=== PATIENT | female | born 1935 | race Caucasian/White ===

== ENCOUNTER → 2018-03-11 | Outpatient (CLI) | payer MEDICARE, BC ==
[2018-03-11 19:15] LABS: Vitamin D 25 Hydroxy 33.5 ng/mL (30.0-100.0)
== END ==
LOC: LABWHC1 11:56
PROVIDERS: ATTEND Psychiatry & Neurology Neurology
DX: F41.9 Anxiety disorder, unspecified (principal); R41.3 Other amnesia; R53.83 Other fatigue
CPT/HCPCS: 36415; 82306; 82607; 82747

== ENCOUNTER → 2018-03-11 | Outpatient (CLI) | payer MEDICARE, BC ==
--- NOTE | 2018-03-11 13:54 | FL ---
COMPARISON: NONE DATE OF EXAM: 03/11/2018 HISTORY: Dysphasia A number of thin and thick substances were ingested under the care of the department of speech pathol ogy. There is no evidence of aspiration or penetration. There is no evidence of obstruction. 1 min sunil and 11 seconds of fluoroscopy provided. No images IMPRESSION: 1. No evidence of aspiration or penetration.
== END | disposition home or self-care (01) ==
LOC: RADFLMAIN 10:52
PROVIDERS: ATTEND Otolaryngology
DX: R13.10 Dysphagia, unspecified (principal); R49.0 Dysphonia
CPT/HCPCS: 74230

== ENCOUNTER → 2018-03-13 | Outpatient (CLI) | payer MEDICARE, BC ==
--- NOTE | 2018-03-13 10:21 | FL ---
ESOPHOGRAM. HISTORY: Dysphagia Esophagram was performed per the air contrast technique. The patient swallowed barium and effervesce nt crystals without difficulty or delay. Esophageal peristalsis and motility appear to be within normal limits. There is no evidence for filling defect, mass or diverticulum. No hiatal hernia seen. Subsequently single contrast cervical esophagram was performed which fails demonstrate evidence for a spiration penetration or mass. Mild prominence of the cricopharyngeus musculature. IMPRESSION: 1.Mild prominence of the cricopharyngeus musculature.
== END | disposition home or self-care (01) ==
LOC: RADFLWHC 09:31
PROVIDERS: ATTEND Otolaryngology
DX: J39.2 Other diseases of pharynx (principal)
CPT/HCPCS: 74220

== ENCOUNTER → 2018-03-20 | Outpatient (CLI) | payer MEDICARE, BC ==
--- NOTE | 2018-03-20 16:59 | MR ---
MR brain without contrast HISTORY: Cerebral vascular disease, memory loss Multiplanar multisequence imaging through the brain. No comparisons. There is no restricted diffusion. Corpus callosum, cervical medullary junction, cerebellopontine angl es are unremarkable. Cortical atrophy is likely age-related. Scattered hyperintensities are present w ithin the deep white matter, periventricular and subcortical white matter on inversion recovery T2-we ighted sequences, the largest in the right frontal lobe measures proximally 9 mm on axial image 16. T here are approximately 50 lesions present. There are normal vascular flow voids. Mild inflammatory ch carrie present in the mastoid air cells on the right. Orbits show symmetric appearance. There is a part ially empty sella. IMPRESSION: Age-related changes of atrophy and chronic small vessel ischemia. Mild inflammatory mix e mastoid air cells on the right.
== END | disposition home or self-care (01) ==
LOC: RADMRIMAIN 15:26
PROVIDERS: ATTEND Psychiatry & Neurology Neurology
DX: G31.1 Senile degeneration of brain, not elsewhere classified (principal); I67.82 Cerebral ischemia
CPT/HCPCS: 70551

== ENCOUNTER 2018-05-30 16:19 | Emergency (ER) | payer MEDICARE, BC ==
[2018-05-30 16:27] VITALS: RESP 18
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
[2018-05-30] MEDS ORDERED: cloNIDine HCL 0.1 MG TAB PO STA (17:08)
--- NOTE | 2018-05-30 17:48 | XR ---
Cervical spine 5 views. History pain. Comparison none. FINDINGS: Cervical vertebra have fairly normal spacing and alignment. Posterior elements are intact. Atlantoaxi al facet joint is normal. There are no cervical ribs. Neuroforamina are fairly well-maintained. IMPRESSION: Negative cervical spine exam.
[2018-05-30 19:08] VITALS: BP 174/82; PULSE 54; TEMP 97.8
== END 2018-05-30 19:06 | disposition home or self-care (01) ==
LOC: EC 16:19
DX: S10.93XA Contusion of unspecified part of neck, initial encounter (principal); I10 Essential (primary) hypertension; S51.811A Laceration without foreign body of right forearm, initial encounter; F03.90 Unspecified dementia, unspecified severity, without behavioral disturbance, psychotic disturbance, mood disturbance, and anxiety; Z79.899 Other long term (current) drug therapy; Z88.5 Allergy status to narcotic agent; W20.8XXA Other cause of strike by thrown, projected or falling object, initial encounter; Y93.89 Activity, other specified; Y92.89 Other specified places as the place of occurrence of the external cause
CPT/HCPCS: 72050; 99283

== ENCOUNTER 2018-09-20 14:07 | Emergency (ER) | payer MEDICARE, BC ==
[2018-09-20 14:31] VITALS: RESP 18; TEMP 98.7
--- NOTE | 2018-09-20 15:04 | ED ---
Animal Bite HPI - General Source: patient Mode of arrival: ambulatory Limitations: no limitations <Jorge Alberto Hayes - Last Filed: 09/20/18 15:05> <Ramon Wilburn - Last Filed: 09/20/18 15:14> - General Chief Complaint: Animal Bite Stated Complaint: Leg cellulitis Time Seen by Provider: 09/20/18 14:40 - History of Present Illness Initial Comments: 82-year-old with a cat bite that happened 4 days ago. Saw urgent care medical. 1.5 days after incident. Patient is in the paralumbar 3 of Augmentin . patient denies dizziness, lightheadedness, shortness of breath, chest pain. Dr. Wilburn (Jorge Alberto Hayes) - Related Data Home Medications Medication Instructions Recorded Confirmed Carboxymethylcellulose Sodium 1 drop OP DAILY PRN 05/30/15 09/20/18 [Refresh Tears] Donepezil [Aricept] 10 mg PO HS 05/30/18 09/20/18 Losartan Potassium 100 mg PO DAILY 05/30/18 09/20/18 Allergies Allergy/AdvReac Type Severity Reaction Status Date / Time codeine Allergy Nausea & Verified 09/20/18 15:08 Vomiting Review of Systems ROS Other: All systems not noted in ROS Statement are negative. <Jorge Alberto Hayes - Last Filed: 09/20/18 15:05> ROS Other: All systems not noted in ROS Statement are negative. <Ramon Wilburn - Last Filed: 09/20/18 15:14> ROS Statement: Those systems with pertinent positive or pertinent negative responses have been documented in the HPI. Past Medical History Past Medical History: Dementia, Hypertension, Osteoarthritis (OA) Additional Past Medical History / Comment(s): Endometriosis, cerebral arterial sclerosis. Sciatica. Osteoporosis. Wound Rt leg History of Any Multi-Drug Resistant Organisms: None Reported Past Surgical History: Hysterectomy Additional Past Surgical History / Comment(s): Vaginal Banding 1960 Past Anesthesia/Blood Transfusion Reactions: No Reported Reaction Past Psychological History: Depression Smoking Status: Never smoker Past Alcohol Use History: None Reported Past Drug Use History: None Reported - Past Family History Mother Family Medical History: Hypertension <Jorge Alberto Hayes - Last Filed: 09/20/18 15:05> General Exam Limitations: no limitations <Jorge Alberto Hayes - Last Filed: 09/20/18 15:05> Course <Ramon Wilburn - Last Filed: 09/20/18 15:14> Vital Signs 09/20/18 14:28 Temperature 98.7 F Pulse Rate 65 Respiratory 18 Rate Blood Pressure 193/94 O2 Sat by Pulse 99 Oximetry - Reevaluation(s) Reevaluation #1: 09/20/18 15:13 PA supervision: I proceeded [id number] evaluation the patient she did receive antibiotics one half days ago after being bit by her domesticated cat earlier in the week. She states the erythema and swelling is improved she was sent here by the clinic and prescribed a medication for reevaluation. She denies any fevers chills nausea vomiting sweats she states that teeth of the cat are intact no evidence of lymphangitis or is localized erythema the wound appears be in a state of healing. Patient will be discharged with current medications. I do ag ree with the assessment and plan. (Ramon Wilburn) Disposition Is patient prescribed a controlled substance at d/c from ED?: No Time of Disposition: 15:04 <Jorge Alberto Hayes - Last Filed: 09/20/18 15:05> <Ramon Wilburn - Last Filed: 09/20/18 15:14> Clinical Impression: Cat bite Disposition: HOME SELF-CARE Condition: Stable Instructions (If sedation given, give patient instructions): Animal Bite (ED) Additional Instructions: Please continue taking the prescribed medication as directed. Please follow up with primary care. Please return to emergency department if symptoms worsen. Referrals: Mallika Leung MD [Primary Care Provider] - 1-2 days
[2018-09-20 15:14] VITALS: BP 150/87; PULSE 70
== END 2018-09-20 15:13 | disposition home or self-care (01) ==
LOC: EC 14:07
DX: S81.852A Open bite, left lower leg, initial encounter (principal); F03.90 Unspecified dementia, unspecified severity, without behavioral disturbance, psychotic disturbance, mood disturbance, and anxiety; I10 Essential (primary) hypertension; Z79.899 Other long term (current) drug therapy; Z88.5 Allergy status to narcotic agent; W55.01XA Bitten by cat, initial encounter; Y93.89 Activity, other specified; Y92.009 Unspecified place in unspecified non-institutional (private) residence as the place of occurrence of the external cause
CPT/HCPCS: 99283